=== PATIENT | male | born 1970 | race Caucasian/White ===

== ENCOUNTER 2021-10-01 09:07 | Emergency (ER) | payer BC ==
[2021-10-01 09:30] VITALS: BP 130/83; PULSE 118; TEMP 98.1
[2021-10-01] MEDS ORDERED: BAMLANIVIMAB 700 MG, ETESEVIMAB 1,400 MG in SODIUM CHLORIDE 100 ML IVPB ONE (10:41)
[2021-10-01] MEDS ORDERED: BEBTELOVIMAB (EUA) 175 MG/2 ML VIAL IVPUSH ONE (11:07)
[2021-10-01 11:10] LABS: BASO % 0.1 % (0-2.0); EOS % 0.2 % (0-4.5); HEMATOCRIT 45.6 % (35.4-49); HEMOGLOBIN 15.6 GM/dL (11.7-16.9); LYMPH % 8.9 % (8-40); MCH 29.3 pg (25.7-33.7); MCHC 34.1 g/dl (32.0-35.9); MEAN CELL VOLUME 85.8 fl (80-96); MEAN PLT VOLUME 7.9 fl (7.5-11.1); MONO % 8.4 % (3.8-10.2); NEUT % 82.4 % (42.8-82.8); PLATELET COUNT 169 10^3/uL (134-434); RBC 5.31 M/mm3 (4.00-5.60); RDW 13.4 % (11.9-15.9); WHITE BLOOD COUNT 12.6 K/mm3 (4.0-10.0)
[2021-10-01 11:27] LABS: CALCIUM 9.2 mg/dL (8.5-10.1)
[2021-10-01 11:28] LABS: ALBUMIN 3.8 g/dl (3.4-5.0); BLOOD UREA NITROGEN 16.9 mg/dL (7-18)
[2021-10-01 11:32] LABS: BILIRUBIN,TOTAL 0.8 mg/dL (0.2-1); TOT PROT 7.7 g/dl (6.4-8.2)
== END 2021-10-01 12:20 | disposition home or self-care (01) ==
LOC: JER 09:07
DX: U07.1 COVID-19 (principal)
CPT/HCPCS: 36415; 80053; 85025; 99284-25; Q0222